=== PATIENT | female | born 1960 | race Caucasian/White ===

== ENCOUNTER → 2017-09-13 | Outpatient (CLI) | payer OTHER ==
--- NOTE | 2017-09-14 09:03 | RAD ---
EXAM DESCRIPTION: Hand,Left 3 Views CLINICAL HISTORY: HAND PAIN COMPARISON: None. 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 Calcification of the triangular fibrocartilage is noted. No fracturing is detected. IMPRESSION: Degenerative changes are observed in the hand. No fracturing is detected. Electronically signed by: Lc Dos Santos MD 09/14/2017 9:01 AM CDT
--- NOTE | 2017-09-14 09:06 | RAD ---
EXAM DESCRIPTION: Hand,Right 3 Views CLINICAL HISTORY: HAND PAIN COMPARISON: None. TECHNIQUE: 3 views right. FINDINGS: Mild distal interphalangeal joint arthritis is observed. No fracturing is detected. IMPRESSION: Mild degenerative changes are observed. No fracturing is detected. Electronically signed by: Lc Dos Santos MD 09/14/2017 9:04 AM CDT
== END | disposition home or self-care (01) ==
LOC: RAD 08:23
PROVIDERS: ATTEND Orthopaedic Surgery
DX: M79.641 Pain in right hand (principal); M79.642 Pain in left hand

== ENCOUNTER → 2017-09-21 | Outpatient (CLI) | payer OTHER | END | disposition home or self-care (01) | LOC: LAB.O 11:13 | PROVIDERS: ATTEND Orthopaedic Surgery | DX: Z01.818 Encounter for other preprocedural examination (principal) ==

== ENCOUNTER 2017-10-02 05:55 | Day surgery (SDC) | payer OTHER ==
--- NOTE | 2017-10-01 13:12 | HP ---
CHIEF COMPLAINT: Right third finger pain. HISTORY OF PRESENT ILLNESS: Ms. Casey is a 56-year-old female with a history of pain in the digit localized to the palmar aspect. She has pain that is associated with clicking. She is having some locking and has had injections in there, however, she is continuing to have symptoms. Because of the ongoing symptoms, she has requested operative intervention. After discussing the risks , benefits and alternatives to that, the patient has given informed consent. PAST SURGICAL HISTORY: None. MEDICATIONS: 1. Glipizide. 2. Meloxicam. 3. Viibryd. 4. Olanzapine. 5. Oxcarbazepine. 6. Valsartan. 7. Metoprolol. 8. Atorvastatin. 9. Victoza. SOCIAL HISTORY: The patient does not drink or use any illicit drugs. She does smoke. FAMILY HISTORY: None pertinent to today's complaint. REVIEW OF SYSTEMS: Negative except as indicated in the History of Present Illness. PHYSICAL EXAMINATION: VITAL SIGNS: Blood pressure 136/80. Pulse 66. Height 5'6". Weight 272. MENTAL STATUS: The patient is awake, alert, and is able to give a good history and participate in the physical. The patient is oriented to person, place and time. SKIN: Normal tone and turgor. HEENT: Normocephalic, atraumatic. Pupils equal, round and reactive. Mucosal membranes are moist. NECK: Normal range of motion. No thyromegaly, no lymphadenopathy. CHEST: Normal respiratory excursion. CARDIAC: Regular rate and rhythm. No murmurs, rubs or gallops. MUSCULOSKELETAL: She has palpable clicking and pain at the A1 izabela. She has full range of motion and full program strategist strength. Sensation is intact and the entire extremity is warm and well perfused. ASSESSMENT: 1. Trigger finger. PLAN: The plan at this point is for trigger finger release. We have discussed the risks, benefits, and alternatives to that and the patient has given informed consent. #[id number] [facility]
[2017-10-02] MEDS ORDERED: ceFAZolin SODIUM 1 GM VIAL ONE (07:18)
[2017-10-02] MEDS ORDERED: SODIUM CHL 0.9% 100ML MINI-BAG 100 ML IVPB ONE (07:18)
[2017-10-02] MEDS ORDERED: LACTATED RINGERS 1,000 ML ONE (07:18)
[2017-10-02] MEDS ORDERED: BUPIVACAINE 0.25% INJ 30 ML VIAL INJ ONE (09:45)
[2017-10-02] MEDS ORDERED: LIDOCAINE 1% 50 ML VIAL INJ ONE (09:45)
[2017-10-02] MEDS ORDERED: MIDAZOLAM INJ 2 MG/2 ML VIAL ONE (09:52)
[2017-10-02] MEDS ORDERED: fentaNYL CITRATE INJ 50 MCG/ML AMP ONE (09:53)
[2017-10-02] MEDS: VANCOMYCIN HCL INJ 1,000 MG VIAL IVPB ONE ×2 (10:20→10:27)
[2017-10-02] MEDS: ceFAZolin SODIUM 1 GM VIAL ONE ×2 (10:20→10:27)
[2017-10-02] MEDS ORDERED: HYDROcodone 5MG/APAP 325MG 1 EA TAB ONE (11:26)
[2017-10-02] MEDS ORDERED: PROPOFOL 200 MG/20 ML VIAL IV ONE (12:00)
[2017-10-02] MEDS ORDERED: LIDOCAINE 1% 10 ML VIAL INJ ONE (12:00)
[2017-10-02 13:04] VITALS: BP 135/82; TEMP 96.4; O2SAT 99
--- NOTE | 2017-10-03 09:34 | OP ---
DATE OF PROCEDURE: 10/02/17 PREOPERATIVE DIAGNOSIS: 1. Right third trigger finger. POSTOPERATIVE DIAGNOSIS: 1. Right third trigger finger. PROCEDURE: 1. Trigger finger release. SURGEON: Rob Recinos MD. RADIO COMMUNICATIONS MECHANICIAN: Markus Ann CST, SA-C. ANESTHESIA: General anesthesia. COMPLICATIONS: None. INDICATION: Tara is a patient who has had pretty severe pain going on secondary to a clicking sensation and having her finger get stuck in certain positions. Because of her situation, she has requested operative intervention. She has tried conservative measures, however, has failed. FINDINGS: Triggering at the A1 izabela of the digit. PROCEDURE: The patient was brought to the Operating Room and placed in the supine position. Sedation was administered and local anesthetic was injected into the operative area. Following injection, the arm was sterilely prepped and draped. A transverse incision was made directly overlying the A1 izabela of the triggering digit and blunt dissection was carried down to the izabela while protecting the digital nerves. After identification of the izabela, the izabela was transected and a [place] elevator was passed both proximally and distally to ensure complete release. The finger was flexed and extended and there was no evidence of locking or clicking. The wound was thoroughly irrigated and closed with Nylon suture. A sterile dressing was placed and the patient was taken to the Day Surgery Unit. POSTOPERATIVE INSTRUCTIONS: She will followup with us in approximately two days. She is encouraged to do range of motion of the digits. #[id number] [facility]
== END 2017-10-02 11:45 | disposition home or self-care (01) ==
LOC: AMB 05:55
PROVIDERS: ATTEND Orthopaedic Surgery
DX: M65.331 Trigger finger, right middle finger (principal); I10 Essential (primary) hypertension; I25.10 Atherosclerotic heart disease of native coronary artery without angina pectoris; E11.9 Type 2 diabetes mellitus without complications; E66.9 Obesity, unspecified; F17.200 Nicotine dependence, unspecified, uncomplicated; Z79.899 Other long term (current) drug therapy
CPT/HCPCS: 01810; 26055; 82948; J0690; J2250; J3010; J3370; J3490; J7050; J7120

== ENCOUNTER → 2018-06-07 | Outpatient (CLI) | payer OTHER ==
--- NOTE | 2018-06-07 14:47 | RAD ---
EXAM DESCRIPTION: Chest,2 Views CLINICAL HISTORY: SLEEP APNEA COMPARISON: Previous chest x-ray August 23, 2016 TECHNIQUE: PA/lateral FINDINGS: There is no acute appearing cardiac or pulmonary abnormality. Heart size is normal with normal pulmonary vascularity. No pleural effusion or pneumothorax. Lungs are clear with no consolidating infiltrate. Lateral view shows intact sternum and T-spine. No worrisome change since previous study. IMPRESSION: No acute process is identified in the chest. Electronically signed by: Chris Monique MD 06/07/2018 2:45 PM CDT
== END ==
LOC: URH 11:20
PROVIDERS: ATTEND Surgery
DX: G47.33 Obstructive sleep apnea (adult) (pediatric) (principal)

== ENCOUNTER → 2018-07-18 | Outpatient (CLI) | payer OTHER ==
--- NOTE | 2018-07-19 10:44 | US ---
US THYROID CLINICAL STATEMENT: THYRIOD NODULE. COMPARISON: January 14, 2014. September 04, 2016 FINDINGS: Size right thyroid lobe: 4.1 x 1.3 x 1.6 cm Size left thyroid lobe: 4.6 x 1.5 x 1.4 cm Size isthmus: 0.3 cm Estimated total number of nodules greater than or equal to 1 cm: 2 Nodule 1: Size: 1.2 x 0.7 x 1.2 cm Location: Left Mid Composition: solid or almost completely solid: 2 points Echogenicity: hypoechoic: 2 points Shape: wider than tall: 0 points Margins: smooth: 0 points Echogenic foci: none: 0 points ACR Total Points: 4; ACR TI-RADS risk category: TR4 - moderately suspicious nodule. This nodule was not seen on exam from August 2016, but was seen in December 2013 measuring 7 x 5 x 6 mm. There is a 10 x 5 x 6 mm hypoechoic nodule without calcifications in the posterior mid right lobe not seen on previous exam. This was seen on the December 2013 exam measuring 9 x 6 x 7 mm. IMPRESSION: 1. Nodule 1: ACR TI-RADS 2017 Category 4 . Recommend: Follow-up ultrasound in 1 year. 2. Right midpole nodule appears stable compared to December 2013. ACR TI-RADS 2017 Recommendations: TR1: No FNA or follow up TR2: No FNA or follow up TR3: FNA if >/= 2.5 cm, follow up if 1.5 - 2.4 cm in 1, 3, and 5 years TR4: FNA if >/= 1.5 cm, follow up if 1.0 - 1.4 cm in 1, 2, 3, and 5 years TR5: FNA if >/= 1.0 cm, follow up if 0.5 - 0.9 cm every year for 5 years *ACR TI-RADS recommends that no more than two nodules with the highest ACR TI-RADS total point should be biopsied and no more than four nodules should be followed. Electronically signed by: Woodrow Escalante MD 07/19/2018 10:42 AM CDT
== END ==
LOC: US 10:30
PROVIDERS: ATTEND Family Medicine
DX: E04.9 Nontoxic goiter, unspecified (principal)

== ENCOUNTER → 2019-11-28 | Outpatient (CLI) | payer OTHER ==
--- NOTE | 2019-11-28 11:32 | MRI ---
EXAM DESCRIPTION: Shoulder,Right CLINICAL HISTORY: 59 years, Female, PAIN IN RIGHT SHOULDER COMPARISON: Shoulder radiograph from 11/06/2019 TECHNIQUE: MRI of the right shoulder was performed with multiplanar multi sequence imaging without intravenous contrast. FINDINGS: Rotator tendons: Mild supraspinatus, infraspinatus, and moderate subscapularis tendinosis with interstitial fissuring/degeneration. Low-grade partial-thickness bursal surface tear of the posterior supraspinatus tendon (myotendinous junction). The teres minor tendon is intact. No full-thickness rotator cuff tear or tendon retraction. Rotator muscles: No rotator cuff muscle atrophy. Glenoid labrum: Limited evaluation of the labrum demonstrate severe degenerative thinning of the posterior labrum, mild degenerative fraying of the anterior labrum. Acromion: The acromion morphology is type two. Moderate acromioclavicular joint osteoarthrosis with capsular hypertrophy and small inferior projecting osteophyte. Lateral downsloping acromion with small subacromial enthesophyte. Bone and joints: Moderate glenohumeral joint osteoarthrosis with patchy areas of full-thickness cartilage loss along the anterior articular surfaces. No focal bone marrow contusion or fracture. Expected spherical morphology of the posterior lateral humeral head without definite acute or chronic Hill-Sachs lesion. Biceps tendon: Normal course of the biceps tendon long head within the bicipital groove. Short segment split tear of the proximal biceps long head within the bicipital groove along with tendinosis of the intra-articular segment. There is mild fraying of the biceps labral anchor. Fluid distention of the biceps tendon within the bicipital groove. Soft tissues: No solid or cystic mass is seen. Mild subacromial/subdeltoid bursitis. IMPRESSION: 1. Generalized rotator cuff tendinosis/degeneration and interstitial fissuring. Low-grade partial-thickness bursal surface tears of the supraspinatus tendon. No full-thickness rotator cuff tear or tendon retraction. 2. Proximal biceps long head tendinosis, short segment split tear and mild biceps tenosynovitis. 3. Moderate acromioclavicular joint osteoarthrosis and small lateral subacromial enthesophyte can be a cause for external impingement on the rotator cuff. 4. Mild subacromial/subdeltoid bursitis. 5. Moderate glenohumeral joint osteoarthrosis with patchy areas of full-thickness cartilage loss along the anterior articular surfaces. 6. Degenerative tearing of the glenoid labrum. Electronically signed by: Arturo Bean DO 11/28/2019 11:30 AM [facility]
== END ==
LOC: MRI 09:00
PROVIDERS: ATTEND Family Medicine
DX: S43.431A Superior glenoid labrum lesion of right shoulder, initial encounter (principal); M75.81 Other shoulder lesions, right shoulder; M75.21 Bicipital tendinitis, right shoulder; M19.011 Primary osteoarthritis, right shoulder

== ENCOUNTER → 2020-04-16 | Outpatient (CLI) | payer OTHER | LOC: GMAE 11:35 | PROVIDERS: ATTEND Family Medicine | DX: I10 Essential (primary) hypertension (principal); E11.9 Type 2 diabetes mellitus without complications ==